=== PATIENT | female | born 1970 | race Caucasian/White ===

== ENCOUNTER → 2022-11-25 | Outpatient (CLI) | payer OTHER ==
[~2022-11-25] MED LIST: AMIT10 PO; CYCL10 PO; HYDCHL12.5 PO; IBUP800 PO; LEVSOD88 PO; Norco 5-325 Ta1 EACH PO; SERT100 PO
== END | disposition home or self-care (01) ==
LOC: PLD 10:59 → LAB SHORT 10:59
DX: L72.11 Pilar cyst (principal)
CPT/HCPCS: 88304